=== PATIENT | female | born 1945 | race Caucasian/White ===

== ENCOUNTER → 2016-08-11 | Outpatient (CLI) | payer OTHER, MEDICARE | LOC: BHCLAF 10:30 | PROVIDERS: ATTEND Internal Medicine Cardiovascular Disease | DX: I48.91 Unspecified atrial fibrillation (principal); Q21.1 Atrial septal defect | CPT/HCPCS: 93005-PO ==

== ENCOUNTER → 2016-08-16 | Outpatient (CLI) | payer OTHER, MEDICARE | LOC: CIMAGING 09:01 | DX: Z12.31 Encounter for screening mammogram for malignant neoplasm of breast (principal) | CPT/HCPCS: G0202 ==

== ENCOUNTER → 2016-08-25 | Outpatient (CLI) | payer OTHER, MEDICARE | LOC: BHCLAF 10:00 | PROVIDERS: ATTEND Internal Medicine Cardiovascular Disease | DX: I48.91 Unspecified atrial fibrillation (principal); Q21.1 Atrial septal defect | CPT/HCPCS: 93306-PO ==

== ENCOUNTER → 2016-09-13 | Outpatient (CLI) | payer OTHER, MEDICARE | LOC: BHFA 09:00 | PROVIDERS: ATTEND Internal Medicine Cardiovascular Disease | DX: I48.91 Unspecified atrial fibrillation (principal) ==

== ENCOUNTER → 2017-08-21 | Outpatient (CLI) | payer OTHER, MEDICARE | LOC: CIMAGING 07:50 | PROVIDERS: ATTEND Family Medicine | DX: Z12.31 Encounter for screening mammogram for malignant neoplasm of breast (principal) ==

== ENCOUNTER 2017-10-07 00:26 | Emergency (ER) | payer OTHER, MEDICARE ==
[2017-10-07] MEDS ORDERED: BENZOCAINE UNIT DOSE SPRAY HURRICAINE MM ONE (00:36)
--- NOTE | 2017-10-07 01:27 | EDPHY ---
H & P Time Seen by Provider: 10/07/17 00:30 HPI/ROS: CC: nose bleed x 10 hours HPI: This 72-year-old female with past medical history of open heart surgery for a congenital ASD and a Maze procedure as well as atrial fibrillation, on Xarelto 20 mg nightly and an 81 mg aspirin every morning, presents to emergency department today with a nose bleed for the last 10 hr. She has tried Afrin, pressure, and ice to no avail. She has allergies and has been sneezing quite a bit lately which may have precipitated the nose bleed. She does not feel dizzy or lightheaded. She is having no chest pain, shortness of breath, abdominal pain, nausea, or vomiting. She has had no change to her medication dosages recently. REVIEW OF SYSTEMS: Constitutional: No fever, no chills. Eyes: No discharge. ENT: No sore throat. Respiratory: No cough, no shortness of breath. Cardiac: No chest pain, no palpitations. Gastrointestinal: No abdominal pain, no vomiting. Genitourinary: No hematuria. Musculoskeletal: No back pain. Skin: No rashes. Neurological: No headache. Past Medical/Surgical History: PMH: atrial fibrillation, open heart for congenital ASD, MAZE procedure PSH: open heart for congenital ASD, MAZE procedure Allergies: PCN - rash; pseudoephedrine - tachycardia Meds: Advil 200mg nightly aspirin 81 mg every morning, citalopram 20 mg at night, digoxin 0.125 mg in the morning, folic acid 800 mcg in the morning, gabapentin 400 mg 3 times daily, metoprolol 12.5 mg nightly, multivitamin every morning, spironolactone 12.5 mg every morning, Xarelto 20 mg nightly, zolpidem 10 mg nightly Primary care provider Dr. Shanti Ovalles, hearing aid mechanic Dr. Dutch Shepherd Social History: The patient states she never smoked but was exposed to secondhand smoke for quite a long time when she was younger, she denies alcohol use or marijuana use Smoking Status: Never smoked Physical Exam: General Appearance: Alert, no distress. Eyes: Pupils equal and round no pallor or injection. ENT, Mouth: Mucous membranes are moist. Active bleeding from left nares. Respiratory: There are no retractions, lungs are clear to auscultation. Cardiovascular: Irregularly irregular rhythm, normal rate. Gastrointestinal: Abdomen is soft and nontender, no masses, bowel sounds normal. Neurological: Awake and alert, sensory and motor exams grossly normal. Skin: Warm and dry, no rashes. Musculoskeletal: Neck is supple nontender. Extremities are symmetrical, full range of motion. Psychiatric: Patient is oriented X 3, there is no agitation. DIFFERENTIAL DIAGNOSIS: After history and physical exam differential diagnosis was considered for but not limited to: epistaxis, medication adverse effect Constitutional: Initial Vital Signs Temperature (C) 98.1 F 10/07/17 00:34 Heart Rate 82 10/07/17 00:34 Respiratory Rate 16 10/07/17 00:34 Blood Pressure 139/83 H 10/07/17 00:34 O2 Sat (%) 97 10/07/17 00:34 O2 Delivery Mode Room Air Allergies/Adverse Reactions: Penicillins Allergy (Verified 01/31/12 16:55) RED STREAKS UNDER SKIN/HIVES pseudoephedrine Allergy (Verified 01/31/12 16:55) TACHYCARDIA Home Medications: Medication Instructions Recorded Citalopram [celeXA 20 MG (RX)] 20 mg PO HS 01/24/12 Gabapentin [Neurontin 400 MG (RX)] 400 mg PO TID 01/24/12 Multivitamins [Multivitamin (OTC)] 1 each PO DAILY 01/24/12 Zolpidem Tartrate [Ambien 10 mg] 10 mg PO HS 01/24/12 Potassium Cl [Klor-Con 20 meq (RX)] 10 meq PO DAILY 03/18/12 Acetaminophen [Tylenol 325 mg tab 325 mg PO Q6 PRN 06/03/12 (OTC)] Dabigatran Etexilate Mesyl 75 mg PO BID 06/03/12 [Pradaxa 75 MG (RX)] Spironolactone [Aldactone 25 MG 25 mg PO DAILY 06/03/12 (RX)] Aspirin 81mg (*) 10/07/17 Cephalexin 500 mg PO TID 3 Days #9 tablet 10/07/17 Digoxin 0.125 mg PO DAILY 10/07/17 FOLIC ACID 800 mcg DAILY 10/07/17 Metoprolol Tartrate 12.5 mg DAILY 10/07/17 Xarelto 20 mg PO DAILY 10/07/17 Medical Decision Making Procedures: Procedure: Epistaxis control. After verbal consent was obtained, the patient was anesthetized with topical xylocaine . The anterior epistaxis was identified. The patient was treated with a 7.5 ant/post rhino rocket . Following the procedure the patient was re- examined and the bleeding was well controlled. The patient tolerated the procedure well. The procedure was performed by myself. ED Course/Re-evaluation: The patient was seen and examined. Vital signs reviewed. Physical exam was consistent with an anterior epistaxis of the left nares. A 7.5 anterior/ posterior rhino rocket was placed good result. There is no evidence of continued bleeding from the nares or blood in the posterior oropharynx after monitoring the patient for 45 min. She was given a prescription for cephalexin. She should have the packing removed in approximately 3 days. She may elect come back here or follow up with ENT. Of note the patient also has a follow-up appoint with her hearing aid mechanic this coming week as well. Departure - Departure Disposition: Home, Routine, Self-Care Clinical Impression: Acute anterior epistaxis Condition: Good Instructions: Cephalexin (By mouth), Nosebleed (ED) Additional Instructions: Take the antibiotic as directed. Have the packing (rhino-rocket) removed on this Sunday in the ER or if you prefer, an ENT doctor. Recheck sooner if bleeding returns or any other concerns. If nosebleeds are occurring frequently , talk to your doctor about your medications. Referrals: Dutch Shepherd MD [Medical Doctor] - As per Instructions Jim Parikh MD [Medical Doctor] - 2-3 days, call for appt. Prescriptions: Cephalexin 500 mg PO TID 3 Days #9 tablet
[2017-10-07 02:04] VITALS: BP 124/73
== END 2017-10-07 02:03 | disposition home or self-care (01) ==
LOC: CED 00:26
PROC: 2Y41X5Z Packing of Nasal Region using Packing Material (ICD-10-PCS; principal; 2017-10-07)
DX: R04.0 Epistaxis (principal); Z79.01 Long term (current) use of anticoagulants; Z79.82 Long term (current) use of aspirin

== ENCOUNTER → 2018-08-22 | Outpatient (CLI) | payer OTHER, MEDICARE | LOC: CIMAGING 07:42 | PROVIDERS: ATTEND Family Medicine | DX: Z12.31 Encounter for screening mammogram for malignant neoplasm of breast (principal) ==